=== PATIENT | male | born 1990 | race African-American/Black ===

== ENCOUNTER 2021-06-11 12:09 | Emergency (ER) | payer OTHER ==
[~2021-06-11] VITALS: Ht 162.6 cm; Wt 57.6 kg
[2021-06-11 12:18] VITALS: BP 112/67
[2021-06-11] MEDS ORDERED: FLUORESCEIN OPHTH 1 MG STRIP OD ONE (13:40)
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
== END 2021-06-11 15:20 | disposition home or self-care (01) ==
LOC: M ED 12:09
DX: S00.11XA Contusion of right eyelid and periocular area, initial encounter (principal); H11.31 Conjunctival hemorrhage, right eye; F17.200 Nicotine dependence, unspecified, uncomplicated; Y04.8XXA Assault by other bodily force, initial encounter; Y92.9 Unspecified place or not applicable; Y93.9 Activity, unspecified; Y99.9 Unspecified external cause status